=== PATIENT | male | born 1945 | race Caucasian/White ===

== ENCOUNTER → 2024-01-20 | Outpatient (CLI) | payer MEDICARE ==
--- NOTE | 2024-02-13 09:16 | CT ---
Site ID synapse default Patient KingMayo ID [id number] 1945 Age/Gender: 78Y, M Order # N/A Procedure CT brain wo/w con Date 01/20/2024 12:43:00 PM EXAMINATION TYPE: CT brain wo/w con CT DLP: 2183.20 mGycm, Automated exposure control for dose reduction was used. DATE OF EXAM: 01/26/2024 1:47 PM COMPARISON: None, please note PACS Production downtime occurred during the radiologist interpretation of these images with limited priors/reports.. CLINICAL INDICATION: Male, 78 year old with history of CVA, headache; , TECHNIQUE: Axial CT images of the brain were obtained followed by contrast enhanced axial images of t he brain with 100 cc of ISO-view 300 IV contrast. One or more CT dose reduction strategies were utili zed during this examination. Coronal and sagittal reformats reviewed. FINDINGS: Extra-axial spaces: No abnormal extra-axial fluid collections. Ventricular system: Dilatation in proportion to cerebral atrophy. Cerebral parenchyma: Age-appropriate cerebral volume loss. No acute intraparenchymal hemorrhage or ma ss effect. The garcia-white junction is well differentiated. Scattered hypoattenuating areas are seen within the periventricular white matter. No abnormal enhancement is seen after the administration of intravenous contrast. Cerebellum: Unremarkable. Mass effect: No evidence of midline shift. Intracranial vasculature: unremarkable Soft tissues: Normal. Calvarium/osseous structures: No depressed skull fracture. Paranasal sinuses and mastoid air cells: Partial opacification of the right mastoid air cells. Visualized orbits: Bilateral aphakia IMPRESSION: 1. No acute intracranial process and no evidence to suggest intracranial mass. 2. Nonspecific white matter changes, likely secondary to chronic small vessel ischemic disease. 3. Right mastoid effusion. Clinically correlate for mastoiditis.
== END | disposition home or self-care (01) ==
LOC: RADCTMAIN 10:27
PROVIDERS: ATTEND Psychiatry & Neurology Neurology
DX: I67.9 Cerebrovascular disease, unspecified (principal); R90.82 White matter disease, unspecified; H65.91 Unspecified nonsuppurative otitis media, right ear
CPT/HCPCS: 70470; 36415; Q9967

== ENCOUNTER 2024-03-17 09:51 | Emergency (ER) | payer MEDICARE ==
[2024-03-17 10:03] VITALS: RESP 18; TEMP 97.6
--- NOTE | 2024-03-17 10:30 | ED ---
Fall HPI - General Chief Complaint: Fall Stated Complaint: Fall-Facial/R hip injury Time Seen by Provider: 03/17/24 10:04 Source: patient, RN notes reviewed Mode of arrival: wheelchair Limitations: no limitations - History of Present Illness Initial Comments: 78-year-old male presents to the emergency department with chief complaint of fall with right eye and right hip pain. At 3:00 this morning he fell out of bed hitting his eye on the nightstand that he went back to sleep. He reports headache and pressure about right eye. He denies blood thinners, loss of consciousness, shortness of breath, and chest pain. 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 - Related Data Allergies Allergy/AdvReac Type Severity Reaction Status Date / Time No Known Allergies Allergy Verified 03/17/24 09:57 Review of Systems ROS Statement: Those systems with pertinent positive or pertinent negative responses have been documented in the HPI. ROS Other: All systems not noted in ROS Statement are negative. 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 valve replacement Past Psychological History: Depression Smoking Status: Never smoker Past Alcohol Use History: None Reported Past Drug Use History: None Reported General Exam Limitations: no limitations General appearance: alert, in no apparent distress Eye exam: Present: normal appearance, PERRL, EOMI. Absent: scleral icterus, conjunctival injection, periorbital swelling Expanded Eyelids: Laceration: Right, Erythema: Right, Swelling: Right Pupils: Regular, Round: Bilateral, Reactive: Bilateral Sclera/Conjunctival: Injection: Right, Hemorrhage: Right ENT exam: Present: normal exam, mucous membranes moist Neck exam: Present: normal inspection. Absent: tenderness, meningismus, lymphadenopathy Respiratory exam: Present: normal lung sounds bilaterally. Absent: respiratory distress, wheezes, rales, rhonchi, stridor Cardiovascular Exam: Present: regular rate, normal rhythm, normal heart sounds. Absent: systolic murmur, diastolic murmur, rubs, gallop, clicks GI/Abdominal exam: Present: soft, normal bowel sounds. Absent: distended, tenderness, guarding, rebound, rigid Extremities exam: Present: normal inspection, full ROM, normal capillary refill. Absent: tenderness, pedal edema, joint swelling, calf tenderness Back exam: Present: normal inspection Neurological exam: Present: alert, oriented X3, CN II-XII intact Psychiatric exam: Present: normal affect, normal mood Skin exam: Present: warm, dry, intact, normal color. Absent: rash Course Vital Signs 03/17/24 03/17/24 09:58 12:17 Temperature 97.6 F Pulse Rate 60 58 L Respiratory 18 18 Rate Blood Pressure 124/76 172/83 O2 Sat by Pulse 100 98 Oximetry Medical Decision Making - Medical Decision Making Was pt. sent in by a medical professional or institution (, PA, [employer], urgent care, hospital, or group home...) When possible be specific @ -No Did you speak to anyone other than the patient for history (EMS, parent, family, police, friend...)? What history was obtained from this source @ -No Did you review nursing and triage notes (agree or disagree)? Why? @ -I reviewed and agree with nursing and triage notes Were old charts reviewed (outside hosp., previous admission, EMS record, old EKG, old radiological studies, urgent care reports/EKG's, group home records)? Report findings @ -No old charts were reviewed Differential Diagnosis (chest pain, altered mental status, abdominal pain women, abdominal pain men, vaginal bleeding, weakness, fever, dyspnea, syncope, headache, dizziness, GI bleed, back pain, seizure, CVA, palpatations, mental health, musculoskeletal)? @ -Intracranial hemorrhage, periorbital fracture, periorbital hematoma, retrobulbar hematoma, EKG interpreted by me (3pts min.). @ -None X-rays interpreted by me (1pt min.). @ -X-ray hip, pelvis no acute fracture CT interpreted by me (1pt min.). @ -CT brain, C-spine, facial bones showing no acute intracranial hemorrhage there is mild soft tissue swelling on the right, no periorbital fracture no cervical fracture noted U/S interpreted by me (1pt. min.). @ -None done What testing was considered but not performed or refused? (CT, X-rays, U/S, labs)? Why? @ -None What meds were considered but not given or refused? Why? @ -None Did you discuss the management of the patient with other professionals (professionals i.e. , PA, [employer], lab, RT, psych nurse, health care social worker, credit review analyst, teacher, aoc operations intelligence officer, case management specialist)? Give summary @ -No Was smoking cessation discussed for >3mins.? @ -No Was critical care preformed (if so, how long)? @ -No Were there social determinants of health that impacted care today? How? (Homelessness, low income, unemployed, alcoholism, drug addiction, transportation, low edu. Level, literacy, decrease access to med. care, long-term, rehab)? @ -No Was there de-escalation of care discussed even if they declined (Discuss DNR or withdrawal of care, Hospice)? DNR status @ -No What co-morbidities impacted this encounter? (DM, HTN, Smoking, COPD, CAD, Cancer, CVA, ARF, Chemo, Hep., AIDS, mental health diagnosis, sleep apnea, morbi d obesity)? @ -None Was patient admitted / discharged? Hospital course, mention meds given and route, prescriptions, significant lab abnormalities, going to OR and other pertinent info. @ -Disc patient presented for a fall imaging is negative for acute abnormality. Patient has normal vision other than slight discoloration he is advised to follow-up with ophthalmology today he is return to emergency department immediately for any worsening symptoms prior. Patient agrees this plan patient's tetanus was up-to-date and updated on imaging. Undiagnosed new problem with uncertain prognosis? @ -No Drug Therapy requiring intensive monitoring for toxicity (Heparin, Nitro, Insulin, Cardizem)? @ -No Were any procedures done? @ -No Diagnosis/symptom? @ -Fall, periorbital hematoma Acute, or Chronic, or Acute on Chronic? @ -Acute Uncomplicated (without systemic symptoms) or Complicated (systemic symptoms)? @ -Uncomplicated Side effects of treatment? @ -No Exacerbation, Progression, or Severe Exacerbation? @ -No Poses a threat to life or bodily function? How? (Chest pain, [place], [place], pneumonia, PE, COPD, DKA, ARF, appy, cholecystitis, CVA, Diverticulitis, Homicidal, Suicidal, threat to staff... and all critical care pts) @ -No Disposition Clinical Impression: Fall, Periorbital hematoma of right eye, Subconjunctival hemorrhage, Contusion, hip Disposition: HOME SELF-CARE Condition: Stable Instructions (If sedation given, give patient instructions): Head Injury (ED) Additional Instructions: Please return to the Emergency Department if symptoms worsen or any other concerns. Is patient prescribed a controlled substance at d/c from ED?: No Referrals: Garrison Steele MD [Primary Care Provider] - 1-2 days Atul Song MD [STAFF PHYSICIAN] - 1-2 days Time of Disposition: 12:08
--- NOTE | 2024-03-17 11:46 | CT ---
EXAMINATION TYPE: CT brain cspine wo con, CT facial bones wo con CT DLP: 1144.6 mGycm, Automated exposure control for dose reduction was used. DATE OF EXAM: 03/17/2024 11:09 AM COMPARISON: CT brain 02/09/2024 CLINICAL INDICATION:Male, 78 years old with history of pain; Trauma, Rt eye bruising TECHNIQUE: Brain: Multiple axial CT images of the brain were obtained without IV contrast. Cspine: Axial CT images from the skull base to the inferior aspect of T2 we obtained without intraven ous contrast. Coronal and sagittal reformatted images were also reviewed. Facial bones; axial CT images of the facial bones were obtained without contrast and soft tissue and bone windows. Coronal and sagittal reformatted images were also reviewed. FINDINGS: Brain: Extra-axial spaces: No abnormal extra-axial fluid collections. Ventricular system: Dilatation in proportion to cerebral atrophy. Cerebral parenchyma: Cerebral atrophy. No acute intraparenchymal hemorrhage or mass effect. The garcia -white junction is well differentiated. Scattered hypoattenuating areas are seen within the periventr icular white matter. Cerebellum: Unremarkable. Mass effect: No evidence of midline shift. Intracranial vasculature: Atherosclerotic calcifications of the intracranial vessels. Soft tissues: Normal. Calvarium/osseous structures: No depressed skull fracture. Paranasal sinuses and mastoid air cells: Similar partial opacification of the right mastoid air cells . Visualized orbits: Bilateral aphakia Cervical spine: Fracture: None. Osseous structures: Multilevel degenerative disc disease changes with endplate spurring and disc oste ophyte complex's. Vertebral alignment: Within normal limits. Spinal canal/Neural Foramina: Disc osteophyte complexes at C4-C5, C5-C6, and C6-C7 with at least mild spinal canal stenosis. Facet joint uncovertebral joint arthropathy scattered throughout the cervical spine with varying degrees of neural foraminal stenosis. Neck soft tissues: Prevertebral soft tissues are within normal limits. Other: The airway is patent. The lung apices are clear. Bilateral carotid bulb calcifications. Facial Bones: There is no evidence of fracture, subluxation, dislocation. Mild right periorbital soft tissue swelli ng. The orbital contents are unremarkable. Bilateral aphakia. The temporal-mandibular joints appear s ymmetric. The visualized portion of the paranasal sinuses appear clear. IMPRESSION: 1. No acute intracranial process. 2. Nonspecific white matter changes, likely secondary to chronic small vessel ischemic disease. 3. No evidence of cervical spine fracture. 4. Moderate multilevel degenerative disc disease. 5. Mild right periorbital soft tissue swelling. [facility], , 03/17/2024 11:43 AM
--- NOTE | 2024-03-17 11:52 | XR ---
EXAMINATION TYPE: XR Hip RT and AP Pelvis DATE OF EXAM: 03/17/2024 11:11 AM INDICATION: Patient age:Male; 78 years old; Reason for study: trauma; PHH. COMPARISON: None. TECHNIQUE: The right hip was examined in the frontal and lateral projections and a AP pelvis. FINDINGS: No evidence of any acute osseous pathology, joint dislocation, or soft tissue swelling. Scl erotic focus within the right femoral neck possibly representing a bone island. Osteoarthritic change s of both hips. Left-sided pelvic phleboliths. Multilevel degenerative changes of visualized spine. V ascular calcifications. Right iliac vascular stent. IMPRESSION: No acute osseous pathology. [facility], , 03/17/2024 11:49 AM
[2024-03-17 12:20] VITALS: BP 172/83; PULSE 58
== END 2024-03-17 12:17 | disposition home or self-care (01) ==
LOC: EC 09:51
CPT/HCPCS: 70450; 70486; 72125; 73502; 99284

== ENCOUNTER → 2024-03-27 | Outpatient (CLI) | payer MEDICARE ==
[2024-03-27 15:59] LABS: Blood Urea Nitrogen 20.4 mg/dL (9.0-27.0); Carbon Dioxide 25.3 mmol/L (21.6-31.8); Chloride 105 mmol/L (96-109); Potassium 5.2 mmol/L (3.5-5.5); Sodium 141 mmol/L (135-145)
[2024-03-27 16:08] LABS: Basophils # (A) 0.09 X 10*3/uL (0.00-0.10); Basophils % (A) 1.5 %; Eosinophils # (A) 0.22 X 10*3/uL (0.04-0.35); Eosinophils % (A) 3.6 %; HCT 37.1 % (39.6-50.0); HGB 12.3 g/dL (13.0-17.0); Lymphocytes # (A) 2.01 X 10*3/uL (0.90-5.00); MCH 31.9 pg (27.0-32.0); MCHC 33.2 g/dL (32.0-37.0); MCV 96.4 FL (80.0-97.0); Mean Platelet Volume 10.4 FL (9.5-12.2); Monocytes # (A) 0.47 X 10*3/uL (0.20-1.00); Monocytes % (A) 7.7 %; NRBC Per 100 WBC 0 X 10*3/uL (0.00-0.01); Neutrophils # (A) 3.29 X 10*3/uL (1.80-7.70); Platelet Count 235 X 10*3/uL (140-440); RBC 3.85 X 10*6/uL (4.40-5.60); WBC 6.09 X 10*3/uL (4.50-10.00)
== END | disposition home or self-care (01) ==
LOC: LABPAT 09:17
PROVIDERS: ATTEND Internal Medicine Interventional Cardiology
CPT/HCPCS: 80051; 82565; 84520; 85025

== ENCOUNTER 2024-03-28 05:43 | Day surgery (SDC) | payer MEDICARE ==
[2024-03-28] MEDS ORDERED: ALPRAZolam 0.25 MG TAB PO PRN (05:49)
[2024-03-28] MEDS ORDERED: NITROGLYCERIN SL TABS 0.4 MG TAB SUBLINGUAL PRN (05:49)
[2024-03-28] MEDS ORDERED: ALPRAZolam 0.5 MG TAB PO PRN (05:49)
[2024-03-28] MEDS: ASPIRIN 325 MG TAB PO ONE (06:11)
[2024-03-28] MEDS: SODIUM CHLORIDE 0.9% 1,000 ML in EMPTY BAG 1 BAG IV SCH (06:11)
[2024-03-28] MEDS: IV FLUID CONTINUATION 1,000 ML IV ONE (06:15)
[2024-03-28 06:25] VITALS: PULSE 60; RESP 16; TEMP 97
[2024-03-28] MEDS: METOPROLOL TARTRATE 25 MG TAB PO STA (06:57)
[2024-03-28] MEDS: amLODIPine 2.5 MG TAB PO STA (06:58)
[2024-03-28] MEDS ORDERED: ATORVASTATIN 80 MG TAB PO ONE (07:00)
[2024-03-28] MEDS: MIDAZOLAM 2 MG/2 ML VIAL IVP ONE (07:47)
[2024-03-28] MEDS: fentaNYL (PF) 50 MCG/ML 2 ML AMP IVP ONE (07:49)
[2024-03-28] MEDS: LIDOCAINE 1% INJ 10MG/ML (20 ML MDV) SQ ONE (07:55)
[2024-03-28] MEDS: VERAPAMIL SYRINGE (5 MG/10 ML) INTRAARTER ONE (07:57)
[2024-03-28] MEDS: HEPARIN SODIUM,PORCINE (1 ML) 2,500 UNIT in SODIUM CHLORIDE 0.9% 250 ML IRRIGATION PRN (08:10)
[2024-03-28] MEDS: HEPARIN SODIUM,PORCINE 10,000 UNIT in SODIUM CHLORIDE 0.9% 1,000 ML IRRIGATION PRN (08:10)
[2024-03-28] MEDS: IOPAMIDOL-370 100ML BTL INJ ONE ×2 (08:14→08:16)
[2024-03-28] MEDS ORDERED: RX INFO: IV CONTRAST WAS GIVEN 1 EACH MISC MISCELLANE PRN (08:19)
--- NOTE | 2024-03-28 08:21 | P.PCN ---
Date of Procedure: 03/28/24 Operative Findings: CARDIAC CATHETERIZATION PERFORMING PHYSICIAN: Joaquín Montanez MD, RPVI PROCEDURE PERFORMED: 1. Selective right and left coronary angiogram 2. Left heart catheterization 3. Ultrasound-guided access of the right radial artery INDICATION: Newly diagnosis cardiomyopathy COMPLICATION: None APPROACH: Right radial artery LEVEL OF SEDATION: Moderate with a sedation length of 20 minutes PROCEDURE DESCRIPTION: After obtaining an informed consent, the patient was brought to cardiac laboratory equipment cleaner. Local anesthesia was performed using lidocaine subcutaneously. The right radial artery was cannulated using Seldinger technique, the guidewire passed easily, following that we advanced a 5-Bulgarian sheath dilator assembly, the wire and dilator were removed and sheath was flushed. Following that, 2 mg of verapamil along with 5000 unit heparin were given. Selective right and left coronary angiogram using a 6-Bulgarian JR4 and JL 3.5 catheters. Following that we did left heart catheterization using 6-Bulgarian pigtail catheter. The procedure was completed there was no complication. SELECTIVE CORONARY ANGIOGRAM: The right coronary artery: Large-caliber vessel and a dominant vessel appears to be angiographically normal Left main: Is angiographically normal as well The left circumflex: Large-caliber vessel nondominant vessel with no evidence of high-grade stenosis and gives rise into OM which appears to be normal The left anterior descending artery: Large-caliber vessel with mild disease only and gives rise into a diagonal branch which has an ostial lesion appears to be in the range of 50% but is a medium caliber vessel HEMODYNAMICS: The LVEDP was 16 mmHg with no gradient was identified across aortic valve CONCLUSION: 1. Mild nonobstructive coronary artery disease beside intermediate lesion involving the ostial of a small to medium diagonal branch 2. Mildly elevated left-sided filling pressure POSTPROCEDURE MANAGEMENT: Medical treatment
[2024-03-28] MEDS ORDERED: SODIUM CHLORIDE 0.9% 1,000 ML IV SCH (08:30)
[2024-03-28] MEDS: ACETAMINOPHEN TAB 500 MG TAB PO STA (10:28)
[2024-03-28 11:51] VITALS: BP 148/75
== END 2024-03-28 11:25 | disposition home or self-care (01) ==
LOC: CATHCVL 05:43
PROVIDERS: ATTEND Internal Medicine Interventional Cardiology
CPT/HCPCS: 93458